=== PATIENT | female | born 1950 | race Caucasian/White ===

== ENCOUNTER 2019-03-26 07:17 | Day surgery (SDC) | payer MEDICARE, OTHER ==
[~2019-03-26 07:17] MED LIST: CYCLOPENTOLATE 1% OPHTH DROPS 2 ML ONE; KETOROLAC 0.45% OPHTH DROPS ONE; PHENYLEPHRINE 2.5% OPHTH 2 ML DROPS ONE; PROPARACAINE 0.5% OPHTH DROPS 15 ML ONE
[2019-03-26] MEDS ORDERED: fentaNYL 100 MCG/2 ML VIAL IVP ONE (07:18)
[2019-03-26] MEDS ORDERED: MIDAZOLAM 2 MG/2 ML VIAL IVP ONE (07:18)
[2019-03-26] MEDS ORDERED: TIMOLOL 0.5% OPHTH DROPS ONE (07:41)
[2019-03-26] MEDS ORDERED: TRIAMCIN/MOXIFLOX OPHTHALMIC 0.6 ML VIAL IO ONE ×2 (07:41→08:47)
[2019-03-26] MEDS ORDERED: VANCOMYCIN OPHTHALMI 8MG/0.8ML 8 MG/0.8 ML SYRINGE IO ONE ×2 (07:41→08:48)
[2019-03-26] MEDS ORDERED: BSS/LIDOCAINE/EPINEPHRINE 1 ML SYRINGE ONE (07:41)
[2019-03-26] MEDS ORDERED: BRIMONIDINE 0.2% OPHTH DROPS 5 ML ONE (07:41)
[2019-03-26] MEDS ORDERED: LACTATED RINGERS 500 ML IV ONE (07:44)
[2019-03-26] MEDS ORDERED: PROPARACAINE 0.5% OPHTH DROPS 15 ML LEFTEYE ONE ×2 (08:07→08:40)
[2019-03-26] MEDS ORDERED: KETOROLAC 0.45% OPHTH DROPS LEFTEYE ONE (08:07)
[2019-03-26] MEDS ORDERED: PHENYLEPHRINE 2.5% OPHTH 2 ML DROPS LEFTEYE ONE (08:08)
[2019-03-26] MEDS ORDERED: CYCLOPENTOLATE 1% OPHTH DROPS 2 ML LEFTEYE ONE (08:08)
--- NOTE | 2019-03-26 08:23 | ANESTHESIA ---
Pre-Anesthesia VS, & Labs - Diagnosis left eye senile combined cataract - Procedure Left eye cataract extraction with IOL implant Vital Signs: Temp Pulse Resp BP Pulse Ox 36.3 C L 73 16 184/77 H 98 03/26/19 07:54 03/26/19 07:54 03/26/19 07:54 03/26/19 07:54 03/26/19 07:54 Height 5 ft 1 in Weight (kg) 58 kg - NPO >8 hours - Is Patient ?: No - Lab Results Current Lab Results: Laboratory Tests 03/26/19 08:09: POC Whole Bld Glucose 205 H Home Medications and Allergies Home Medications: Ambulatory Orders Aspirin [Aspirin EC] 81 mg PO DAILY 03/26/19 Carvedilol [Coreg] 25 mg PO BID 03/26/19 Evolocumab [Repatha Sureclick] 140 mg SQ ONCE 03/26/19 Lisinopril [Zestril] 40 mg PO DAILY 03/26/19 metFORMIN [Glucophage] 500 mg PO BID 03/26/19 Aspirin [Aspirin EC] 81 mg PO DAILY 03/26/19 Carvedilol [Coreg] 25 mg PO BID 03/26/19 Evolocumab [Repatha Sureclick] 140 mg SQ ONCE 03/26/19 Lisinopril [Zestril] 40 mg PO DAILY 03/26/19 metFORMIN [Glucophage] 500 mg PO BID 03/26/19 Allergies/Adverse Reactions: Allergies Allergy/AdvReac Type Severity Reaction Status Date / Time Penicillins Allergy Severe Unknown Verified 03/26/19 08:02 morphine Allergy Intermediate Unknown Verified 03/26/19 08:02 codeine Allergy Mild Nausea Verified 03/26/19 08:02 Anes History & Medical History - Medical History Cardiovascular: reports: Hypertension, Angina, MA (s/p stents x4. Last visit with steel tester in January, no idications for testing. Patient has been asymptomatic) Pulmonary: reports: None, Other (cough) Gastrointestinal: reports: None Urinary: reports: None Neuro: reports: None Musculoskeletal: reports: Osteoarthritis Endocrine/Autoimmune: reports: Type 2 diabetes Blood Disorders: reports: None Skin: reports: Other Smoking Status: Former smoker (Quit 2006) Psychosocial: reports: No issues indicated - Surgical History General: Cholecystectomy Cardiothoracic: Coronary stent Exam General: Alert, Oriented x3, Cooperative, No acute distress Dental: WNL Mouth Openin Fingerbreadth Neck Mobility: Normal Mallampati classification: II Thyromental Distance: greater than 6 cm Respiratory: Lungs clear, Normal breath sounds, No respiratory distress, No accessory muscle use Cardiovascular: Regular rate, Normal S1, Normal S2, No murmurs Mental/Cognitive Status: Alert/Oriented X3, Normal for patient Plan Anesthesia Type: MAC Consent for Procedure(s) Verified and Reviewed: Yes Code Status: Attempt Resuscitation ASA classification: 3-Severe systemic disease Is this case an emergency?: No
[2019-03-26] MEDS ORDERED: EPINEPHrine 1 MG/ML AMP IVP ONE (08:46)
[2019-03-26] MEDS ORDERED: BRIMONIDINE 0.2% OPHTH DROPS 5 ML OPTH ONE (08:46)
[2019-03-26] MEDS ORDERED: TIMOLOL 0.5% OPHTH DROPS OPTH ONE (08:47)
[2019-03-26] MEDS ORDERED: CHONDR SULF/HYALURONATE SYRINGE IO ONE (08:47)
[2019-03-26] MEDS ORDERED: BSS/LIDOCAINE/EPINEPHRINE 1 ML SYRINGE IO ONE (08:47)
[2019-03-26 09:21] VITALS: BP 139/77
--- NOTE | 2019-03-26 09:41 | OPERATIVE REPORT ---
DATE OF SERVICE: 03/26/2019 Physician: Tevin Blake MD PREOPERATIVE DIAGNOSIS: Visually significant cataract, left eye. This was her first cataract surger y. POSTOPERATIVE DIAGNOSIS: Visually significant cataract, left eye. This was her first cataract surge ry. DESCRIPTION OF PROCEDURE: Phacoemulsification with posterior chamber intraocular lens implant, left eye. SURGEON: Tevin Blake MD ANESTHESIA: Monitored anesthesia care. COMPLICATIONS: None. OPERATIVE INDICATIONS: This is a 69-year-old woman with progressive vision loss in the left eye due to 3+ nuclear sclerotic and 1+ posterior subcapsular cataract. Best corrected visual acuity was 20/4 0, with glare to hand motion vision in the left eye. Indications for surgery are overall decrease in vision, difficulty seeing words on a computer screen, difficulty seeing words, closed caption or jose g e scores on TV, difficulty seeing street signs, difficulty driving in low light or at night, difficul ty driving at night because of headlights from other vehicles, difficulty with glare or bright lights in any situation, and difficulty tracking a golf ball. She was consented at length concerning risks and benefits of cataract surgery, after which she expressed a desire to proceed with surgery. OPERATIVE PROCEDURE: Patient was taken to OR #3 and placed under monitored anesthesia care. Surgica l timeout was conducted confirming correct patient, correct procedure, and correct surgical site. Sh e was given topical anesthesia, and prepped and draped in the usual sterile fashion. The eye was ent ered at the 6 and 3 o'clock positions. Intracameral Shugarcaine was injected into the anterior chamb er, followed by Viscoat. A continuous-tear curvilinear capsulorrhexis was performed. The nucleus wa s hydrodissected and phacoemulsified. The cortex was evacuated using automated infusion and aspirati on. Provisc was injected in the capsular bag, and a 22.0 diopter intraocular lens inserted in the ba g. I and A was used to evacuate the viscoelastic materials. The eye was inflated to physiologic pre ssure using balanced salt solution and found to be watertight. Approximately 0.25 mL of a mixture of triamcinolone, moxifloxacin was injected transsclerally into the vitreous in the inferotemporal quad rant. An additional 0.55 mL of a mixture of triamcinolone, moxifloxacin and vancomycin was injected subconjunctivally in the superior quadrant for infection and inflammation prophylaxis. Wound integri ty was checked with Weck-Tosin sponges. Patient was taken from the operating room in good condition an d given postoperative instructions. TD: 03/26/2019 09:10
== END 2019-03-26 07:18 | disposition home or self-care (01) ==
LOC: SDS 07:17
PROVIDERS: ATTEND Ophthalmology
PROC: 08RK3JZ Replacement of Left Lens with Synthetic Substitute, Percutaneous Approach (ICD-10-PCS; principal; 2019-03-26 09:00)
DX: E11.36 Type 2 diabetes mellitus with diabetic cataract (principal); H25.812 Combined forms of age-related cataract, left eye; I10 Essential (primary) hypertension; I20.9 Angina pectoris, unspecified; I25.2 Old myocardial infarction; Z79.84 Long term (current) use of oral hypoglycemic drugs; Z79.899 Other long term (current) drug therapy; Z79.82 Long term (current) use of aspirin; Z87.891 Personal history of nicotine dependence; Z95.5 Presence of coronary angioplasty implant and graft
CPT/HCPCS: 66984; A9270; J3490; V2632

== ENCOUNTER 2022-01-08 10:38 | Outpatient (CLI) | payer MEDICARE, OTHER ==
--- NOTE | 2022-01-09 07:56 | XRAY Report ---
PROCEDURE: Chest 2 View X-Ray INDICATIONS: DYSPNEA TECHNIQUE: 2 views of the chest were acquired. COMPARISON: None FINDINGS: Surgical changes and devices: Cholecystectomy clip.. Lungs and pleura: No pleural effusions or pneumothorax. Lungs are clear. Mediastinum: Mediastinal contours are normal. Heart size is normal. Moderate aortic atheroscleroti c calcification. Bones and chest wall: No suspicious bony abnormalities. Soft tissues appear unremarkable. IMPRESSION: No acute cardiopulmonary disease. Reviewed by: Corrine Cohen MD on 01/09/2022 7:55 AM [facility] Approved by: Corrine Cohen MD on 01/09/2022 7:55 AM [facility] Station ID: [id number]
== END 2022-01-08 10:39 | disposition home or self-care (01) ==
LOC: DI.N 10:38
PROVIDERS: ATTEND Physician Assistant
DX: R06.00 Dyspnea, unspecified (principal)